=== PATIENT | male | born 1995 | race Caucasian/White ===

== ENCOUNTER 2018-09-03 03:46 | Emergency (ER) | payer SELFPAY ==
[2018-09-03] MEDS ORDERED: Lidocaine 1% 30 ML SDV INJECT ONE (03:52)
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
== END 2018-09-03 05:52 | disposition home or self-care (01) ==
LOC: DL.ED 03:46
DX: S06.9X1A Unspecified intracranial injury with loss of consciousness of 30 minutes or less, initial encounter (principal); S01.412A Laceration without foreign body of left cheek and temporomandibular area, initial encounter; Y04.0XXA Assault by unarmed brawl or fight, initial encounter
CPT/HCPCS: 12013; 70450; 70486; 99284; J2001